=== PATIENT | male | born 1985 | race Caucasian/White ===

== ENCOUNTER → 2016-10-29 | Outpatient (CLI) | payer OTHER ==
--- NOTE | 2016-10-30 07:07 | XR ---
Right ankle HISTORY: Trauma and pain 3 views of the right ankle No comparisons There is soft tissue swelling. Bone mineralization, joint spaces and alignment are maintained. There is a small plantar calcaneal spur. IMPRESSION: No fracture or dislocation is evident, follow-up as indicated.
== END ==
LOC: RADXRYALE 13:38
PROVIDERS: ATTEND Physician Assistant Medical
DX: S93.401A Sprain of unspecified ligament of right ankle, initial encounter (principal)